=== PATIENT | female | born 1990 | race Caucasian/White ===

== ENCOUNTER 2022-10-14 06:11 | Emergency (ER) | payer SELFPAY ==
[~2022-10-14] VITALS: Ht 152.4 cm; Wt 67.0 kg
[2022-10-14] MEDS ORDERED: ACETAMINOPHEN 325MG TABLET PO STA (08:24)
[2022-10-14] MEDS ORDERED: KETOROLAC 30MG/ML VIAL IV STA (08:24)
[2022-10-14] MEDS ORDERED: ONDANSETRON HCL 4MG/2ML INJ IV STA (08:24)
[2022-10-14] MEDS ORDERED: SODIUM CHLORIDE 0.9% 1,000 ML IV ONE (08:30)
[2022-10-14 09:16] VITALS: BP 113/76
[2022-10-14 09:36] LABS: CLARITY URINE CLEAR (CLEAR); COLOR URINE YELLOW (YELLOW); KETONES URINE NEGATIVE (NEGATIVE); LEUKOCYTE ESTERASE URINE 1+ (NEGATIVE); NITRITE URINE NEGATIVE (NEGATIVE); OCCULT BLOOD URINE TRACE (NEGATIVE); PH URINE 6.5 (4.5-8.0); PROTEIN URINE NEGATIVE (NEGATIVE)
[2022-10-14 09:52] LABS: CHLORIDE 106 mEq/L (98-107)
[2022-10-14 09:54] LABS: HEMATOCRIT. 42.2 % (36.0-48.0); HEMOGLOBIN. 13.8 g/dL (12.0-16.0); MEAN CORPUSCULAR HEMOGLOBIN 28.8 pg (28.0-32.0); MEAN CORPUSCULAR VOLUME 87.9 fL (81.0-99.0); MEAN PLATELET VOLUME 7.7 fl (7.4-10.4); PLATELET 226 x1000/uL (130-400); RED CELL DISTRIBUTION WIDTH 13.7 % (11.6-14.6)
[2022-10-14 09:57] LABS: UCG SCREEN NEGATIVE
[2022-10-14 10:16] LABS: PLATELET ESTIMATE NORMAL
[2022-10-14] MEDS ORDERED: CEFTRIAXONE SODIUM 500 MG/VIAL IM ONE (11:45)
[2022-10-14] MEDS ORDERED: METR-167 MT (11:47)
[2022-10-14] MEDS ORDERED: DOXY100T2 MT (11:47)
== END 2022-10-14 12:33 | disposition home or self-care (01) ==
LOC: ER 06:11
DX: N73.0 Acute parametritis and pelvic cellulitis (principal); R50.9 Fever, unspecified; R11.2 Nausea with vomiting, unspecified; Z20.822 Contact with and (suspected) exposure to COVID-19
CPT/HCPCS: 36415; 71045; 74176; 80053; 81003; 81025; 83690; 85025; 87426; 96361; 96372; 96374; 96375; 99285; C9803; J0696; J1885; J2405; J7030; Z7610